=== PATIENT | female | born 1985 | race Caucasian/White ===

== ENCOUNTER 2017-07-14 14:06 | Emergency (ER) | payer MEDICAID ==
[~2017-07-14] VITALS: Ht 167.6 cm; Wt 56.1 kg
[2017-07-14 14:14] VITALS: BP 150/100
[2017-07-14] MEDS ORDERED: IBUPROFEN 200 MG TABLET ONE (14:54)
[2017-07-14] MEDS ORDERED: HYDROcodone/APAP 5/325 TABLET ONE (14:54)
[2017-07-14] MEDS ORDERED: HYDROcodone/APAP 5/325 TABLET PO ONE (15:00)
[2017-07-14] MEDS ORDERED: IBUPROFEN 200 MG TABLET PO ONE (15:00)
== END 2017-07-14 15:18 | disposition home or self-care (01) ==
LOC: ED 15:00
DX: K08.89 Other specified disorders of teeth and supporting structures (principal); R51 Headache; R11.2 Nausea with vomiting, unspecified
CPT/HCPCS: 99283

== ENCOUNTER 2017-08-31 21:12 | Emergency (ER) | payer MEDICAID ==
[~2017-08-31] VITALS: Ht 167.6 cm; Wt 60.0 kg
[2017-08-31 21:14] VITALS: BP 115/79
[2017-08-31] MEDS ORDERED: SODIUM CHLORIDE FLUSH 10ML SYR IVF ONE (22:00)
[2017-08-31 22:01] LABS: BASOPHILS # (AUTO) 0.06 x10^3/uL (0-0.1); BASOPHILS % (AUTO) 1 % (0-1); EOSINOPHILS # (AUTO) 0.14 x10^3/uL (0-0.4); EOSINOPHILS % (AUTO) 2 % (1-7); LYMPHOCYTES # (AUTO) 3.13 x10^3/uL (1-3.4); LYMPHOCYTES % (AUTO) 35 % (22-44); MD NO; MEAN CORPUSCULAR HEMOGLOBIN 30.4 pg (27.0-34.8); MEAN CORPUSCULAR HGB CONC 33.4 g/dL (32.4-35.8); MEAN CORPUSCULAR VOLUME 90.9 fL (80-100); MEAN PLATELET VOLUME 9.6 fL (7.4-10.4); MONOCYTES # (AUTO) 0.83 x10^3/uL (0.2-0.8); MONOCYTES % (AUTO) 9 % (2-9); NEUTROPHILS # (AUTO) 4.84 x10^3/uL (1.8-6.8); NEUTROPHILS % (AUTO) 54 % (42-75); PLATELET COUNT 334 x10^3/uL (130-400); RED BLOOD COUNT 3.87 x10^6/uL (3.82-5.3); RED CELL DISTRIBUTION WIDTH 13.5 % (9.6-15.2)
[2017-08-31 22:09] LABS: ALANINE AMINOTRANSFERASE 16 U/L (12-78); ALBUMIN 3.5 g/dL (3.4-5.0); ANION GAP 7 mmol/L (5-15); CHLORIDE 107 mmol/L (98-107); CREATININE 0.73 mg/dL (0.55-1.02)
[2017-08-31 22:26] LABS: ALKALINE PHOSPHATASE 50 U/L (45-117); BILIRUBIN,TOTAL 0.2 mg/dL (0.2-1.0)
[2017-08-31 22:37] LABS: MICROSCOPIC NOT IND
[2017-08-31 22:41] LABS: CULTURE INDICATED? NO
== END 2017-08-31 23:12 | disposition home or self-care (01) ==
LOC: ED 23:00
DX: O26.891 Other specified pregnancy related conditions, first trimester (principal); R10.31 Right lower quadrant pain; Z3A.01 Less than 8 weeks gestation of pregnancy; Z88.0 Allergy status to penicillin
CPT/HCPCS: 36415; 76801; 80053; 81003; 83690; 84702; 85025; 86901; 99285

== ENCOUNTER 2017-09-15 12:40 | Emergency (ER) | payer MEDICAID ==
[~2017-09-15] VITALS: Ht 167.6 cm; Wt 58.7 kg
[2017-09-15 14:11] LABS: BASOPHILS # (AUTO) 0.05 x10^3/uL (0-0.1); BASOPHILS % (AUTO) 1 % (0-1); EOSINOPHILS # (AUTO) 0.06 x10^3/uL (0-0.4); EOSINOPHILS % (AUTO) 1 % (1-7); LYMPHOCYTES # (AUTO) 1.74 x10^3/uL (1-3.4); LYMPHOCYTES % (AUTO) 17 % (22-44); MD NO; MEAN CORPUSCULAR HGB CONC 33.7 g/dL (32.4-35.8); MEAN CORPUSCULAR VOLUME 92.1 fL (80-100); MEAN PLATELET VOLUME 9.5 fL (7.4-10.4); MONOCYTES % (AUTO) 7 % (2-9); NEUTROPHILS # (AUTO) 7.86 x10^3/uL (1.8-6.8); NEUTROPHILS % (AUTO) 76 % (42-75); PLATELET COUNT 323 x10^3/uL (130-400); RED BLOOD COUNT 4.63 x10^6/uL (3.82-5.3); RED CELL DISTRIBUTION WIDTH 13.1 % (9.6-15.2)
[2017-09-15 14:22] LABS: ANION GAP 8 mmol/L (5-15); CALCIUM 8.7 mg/dL (8.5-10.1); CHLORIDE 106 mmol/L (98-107)
[2017-09-15 14:39] LABS: ALANINE AMINOTRANSFERASE 20 U/L (12-78); ALKALINE PHOSPHATASE 61 U/L (45-117); BILIRUBIN,TOTAL 0.4 mg/dL (0.2-1.0); CREATININE 0.59 mg/dL (0.55-1.02); TOTAL PROTEIN 8.3 g/dL (6.4-8.2)
[2017-09-15 14:48] LABS: MICROSCOPIC NOT IND
[2017-09-15 15:03] LABS: CULTURE INDICATED? NO
[2017-09-15 16:11] VITALS: BP 108/75
== END 2017-09-15 16:59 | disposition home or self-care (01) ==
LOC: ED 16:15
DX: O26.891 Other specified pregnancy related conditions, first trimester (principal); R42 Dizziness and giddiness; Z88.0 Allergy status to penicillin; Z87.891 Personal history of nicotine dependence; Z3A.00 Weeks of gestation of pregnancy not specified
CPT/HCPCS: 36415; 80053; 81003; 82962; 84702; 85025; 93005; 99285

== ENCOUNTER 2017-11-11 13:17 | Emergency (ER) | payer MEDICAID ==
[~2017-11-11] VITALS: Ht 167.6 cm; Wt 58.9 kg
[2017-11-11 13:21] VITALS: BP 101/70
== END 2017-11-11 16:45 | disposition left against medical advice (07) ==
LOC: ED 16:39
DX: R10.30 Lower abdominal pain, unspecified (principal); Z53.21 Procedure and treatment not carried out due to patient leaving prior to being seen by health care provider

== ENCOUNTER 2018-01-04 10:54 | Outpatient (CLI) | payer MEDICAID ==
[~2018-01-04] VITALS: Ht 167.6 cm; Wt 59.1 kg
[2018-01-04 11:30] LABS: MICROSCOPIC NOT IND
[2018-01-04 12:05] LABS: BASOPHILS # (AUTO) 0.03 x10^3/uL (0-0.1); BASOPHILS % (AUTO) 0 % (0-1); EOSINOPHILS # (AUTO) 0.02 x10^3/uL (0-0.4); EOSINOPHILS % (AUTO) 0 % (1-7); LYMPHOCYTES # (AUTO) 1.86 x10^3/uL (1-3.4); LYMPHOCYTES % (AUTO) 19 % (22-44); MD NO; MEAN CORPUSCULAR HEMOGLOBIN 30.7 pg (27.0-34.8); MEAN CORPUSCULAR HGB CONC 33.6 g/dL (32.4-35.8); MEAN CORPUSCULAR VOLUME 91.5 fL (80-100); MEAN PLATELET VOLUME 9.4 fL (7.4-10.4); MONOCYTES # (AUTO) 0.47 x10^3/uL (0.2-0.8); MONOCYTES % (AUTO) 5 % (2-9); NEUTROPHILS # (AUTO) 7.66 x10^3/uL (1.8-6.8); NEUTROPHILS % (AUTO) 76 % (42-75); PLATELET COUNT 257 x10^3/uL (130-400); RED BLOOD COUNT 3.44 x10^6/uL (3.82-5.3); RED CELL DISTRIBUTION WIDTH 12.6 % (9.6-15.2)
[2018-01-04 12:19] LABS: ALANINE AMINOTRANSFERASE 21 U/L (12-78); ALBUMIN 2.8 g/dL (3.4-5.0); ANION GAP 7 mmol/L (5-15); CALCIUM 8.1 mg/dL (8.5-10.1); CHLORIDE 107 mmol/L (98-107); CREATININE 0.45 mg/dL (0.55-1.02)
[2018-01-04 12:21] LABS: ALKALINE PHOSPHATASE 60 U/L (45-117); BILIRUBIN,TOTAL 0.1 mg/dL (0.2-1.0); TOTAL PROTEIN 6.5 g/dL (6.4-8.2)
[2018-01-04 12:46] LABS: CLUE CELLS NONE SEEN (NONE SEEN); WET PREP WBCS NONE SEEN (FEW)
[2018-01-04 12:50] VITALS: BP 99/58
[2018-01-04] MEDS ORDERED: TERBUTALINE 1 MG/ML, 1ML ONE (13:26)
[2018-01-04] MEDS ORDERED: TERBUTALINE 1 MG/ML, 1ML SQ ONE (13:30)
[2018-01-04] MEDS ORDERED: PREN1TAB10 PO (14:37)
== END 2018-01-04 15:31 | disposition home or self-care (01) ==
LOC: LDOP 10:54
PROVIDERS: ATTEND Obstetrics & Gynecology
DX: O26.892 Other specified pregnancy related conditions, second trimester (principal); R10.9 Unspecified abdominal pain; Z3A.23 23 weeks gestation of pregnancy
CPT/HCPCS: 36415; 59025; 76815; 80053; 81003; 84112; 85025; 87086; 87147; 87210; 87491; 87591; 87808; 96372; 99201; J3105; G0463

== ENCOUNTER 2018-01-06 00:59 | Emergency (ER) | payer MEDICAID ==
[~2018-01-06 00:59] MED LIST: PREN1TAB10 PO
[2018-01-06] MEDS ORDERED: Tylenol PM PO (02:35)
[2018-01-06] MEDS ORDERED: RANI150T23 PO (02:35)
== END 2018-01-06 01:15 | disposition left against medical advice (07) ==
LOC: ED 01:09
DX: O26.892 Other specified pregnancy related conditions, second trimester (principal); Z3A.24 24 weeks gestation of pregnancy; Z53.21 Procedure and treatment not carried out due to patient leaving prior to being seen by health care provider

== ENCOUNTER 2018-01-06 01:09 | Outpatient (CLI) | payer MEDICAID ==
[~2018-01-06] VITALS: Ht 167.6 cm; Wt 59.1 kg
[2018-01-06 01:19] VITALS: BP 125/61
[2018-01-06] MEDS ORDERED: TERBUTALINE 1 MG/ML, 1ML ONE (01:44)
[2018-01-06] MEDS: TERBUTALINE 1 MG/ML, 1ML SQ ONE (01:47)
[2018-01-06] MEDS ORDERED: NITROFURANTOIN (MACROBID) 100 MG CAPSULE ONE (01:57)
[2018-01-06] MEDS: NITROFURANTOIN (MACROBID) 100 MG CAPSULE PO ONE (01:58)
[2018-01-06] MEDS ORDERED: RANI150T23 PO (02:35)
[2018-01-06] MEDS ORDERED: Tylenol PM PO (02:35)
== END 2018-01-06 03:38 | disposition home or self-care (01) ==
LOC: LDOP 01:09
PROVIDERS: ATTEND Obstetrics & Gynecology
DX: O26.899 Other specified pregnancy related conditions, unspecified trimester (principal); R10.9 Unspecified abdominal pain; M54.9 Dorsalgia, unspecified; Z3A.00 Weeks of gestation of pregnancy not specified
CPT/HCPCS: 59025; 96372; 99211; J3105; G0463

== ENCOUNTER 2018-01-12 02:18 | Outpatient (CLI) | payer MEDICAID ==
[~2018-01-12 02:18] MED LIST changes: +RANI150T23 PO; +Tylenol PM PO
== END 2018-01-12 03:15 | disposition home or self-care (01) ==
LOC: LDOP 02:18
PROVIDERS: ATTEND Obstetrics & Gynecology
DX: O26.893 Other specified pregnancy related conditions, third trimester (principal); Z3A.36 36 weeks gestation of pregnancy; R10.9 Unspecified abdominal pain
CPT/HCPCS: 59025; 99211; G0463

== ENCOUNTER 2018-02-18 22:51 | Outpatient (CLI) | payer MEDICAID ==
[2018-02-18 22:59] VITALS: BP 119/60
[2018-02-18 23:50] LABS: MICROSCOPIC NOT IND
[2018-02-18 23:51] LABS: FERNING TEST FERNING NOT PRESENT (NEGATIVE)
[2018-02-19] MEDS ORDERED: TERBUTALINE 1 MG/ML, 1ML IV ONE
[2018-02-19] MEDS ORDERED: TERBUTALINE 1 MG/ML, 1ML ONE (00:02)
== END 2018-02-19 01:29 | disposition home or self-care (01) ==
LOC: LDOP 22:51
PROVIDERS: ATTEND Obstetrics & Gynecology
DX: O26.893 Other specified pregnancy related conditions, third trimester (principal); R10.9 Unspecified abdominal pain; Z3A.30 30 weeks gestation of pregnancy
CPT/HCPCS: 59025; 81003; 84112; 87086; 89060; 96372; 99211; J3105; G0463; Q0114

== ENCOUNTER 2018-03-06 21:52 | Observation (INO) | payer MEDICAID ==
[2018-03-06] MEDS ORDERED: TERBUTALINE 1 MG/ML, 1ML ONE (22:16)
[2018-03-06] MEDS ORDERED: TERBUTALINE 1 MG/ML, 1ML SQ ONE (22:30)
[2018-03-06] MEDS ORDERED: LACTATED RINGERS 1,000 ML IV SCH (22:30)
[2018-03-06] MEDS ORDERED: LACTATED RINGERS 1,000 ML IVBOLUS ONE (22:30)
[2018-03-06 23:01] LABS: MICROSCOPIC NOT IND
== END 2018-03-06 23:35 | disposition home or self-care (01) ==
LOC: LDOP 21:52 → LDIP 22:15
PROVIDERS: ADMIT Obstetrics & Gynecology; ATTEND Obstetrics & Gynecology
DX: O62.9 Abnormality of forces of labor, unspecified (principal); Z3A.32 32 weeks gestation of pregnancy; Z88.0 Allergy status to penicillin; Z88.5 Allergy status to narcotic agent
CPT/HCPCS: 59025; 81003; 87086; 96372; G0378; J3105; J7120; 96360

== ENCOUNTER 2018-03-17 14:43 | Outpatient (CLI) | payer MEDICAID ==
[~2018-03-17] VITALS: Ht 167.6 cm; Wt 59.0 kg
[2018-03-17 14:56] VITALS: BP 101/64
[2018-03-17 15:15] LABS: MICROSCOPIC INDICATED
== END 2018-03-17 16:30 | disposition home or self-care (01) ==
LOC: LDOP 14:43
PROVIDERS: ATTEND Obstetrics & Gynecology
DX: O26.893 Other specified pregnancy related conditions, third trimester (principal); R10.9 Unspecified abdominal pain; Z3A.33 33 weeks gestation of pregnancy
CPT/HCPCS: 59025; 81001; 84112; 87086; 99211; G0463

== ENCOUNTER 2018-03-19 06:07 | Outpatient (CLI) | payer MEDICAID ==
[~2018-03-19] VITALS: Ht 167.6 cm; Wt 59.0 kg
[2018-03-19 06:37] VITALS: BP 102/60
[2018-03-19] MEDS ORDERED: ACETAMINOPHEN 325 MG TABLET ONE (06:39)
[2018-03-19 06:46] LABS: MICROSCOPIC NOT IND
[2018-03-19 06:59] LABS: AMPHETAMINE SCREEN, URINE Negative (Negative); BARBITURATE SCREEN, URINE Negative (Negative); BENZODIAZEPINE SCREEN, URINE Negative (Negative); CANNABINOID SCREEN, URINE Negative (Negative); COCAINE SCREEN, URINE Negative (Negative); METHADONE SCREEN, URINE Negative (Negative); OPIATE SCREEN, URINE Negative (Negative)
[2018-03-19] MEDS ORDERED: ACETAMINOPHEN 325 MG TABLET PO ONE (07:00)
== END 2018-03-19 07:00 | disposition home or self-care (01) ==
LOC: LDOP 06:07
PROVIDERS: ATTEND Obstetrics & Gynecology
DX: O26.893 Other specified pregnancy related conditions, third trimester (principal); O62.9 Abnormality of forces of labor, unspecified; R10.9 Unspecified abdominal pain; M54.9 Dorsalgia, unspecified; Z3A.34 34 weeks gestation of pregnancy
CPT/HCPCS: 59025; 80307; 81003; 87086; 99211; G0463

== ENCOUNTER 2018-03-30 16:26 | Outpatient (CLI) | payer MEDICAID ==
[~2018-03-30] VITALS: Ht 167.6 cm; Wt 60.9 kg
[2018-03-30 17:26] VITALS: BP 96/61
[2018-03-30 17:41] LABS: MICROSCOPIC NOT IND
== END 2018-03-30 18:44 | disposition home or self-care (01) ==
LOC: LDOP 16:26
PROVIDERS: ATTEND Obstetrics & Gynecology
DX: O26.893 Other specified pregnancy related conditions, third trimester (principal); Z3A.35 35 weeks gestation of pregnancy; M54.9 Dorsalgia, unspecified
CPT/HCPCS: 59025; 81003; 87086; 89060; 99211; G0463; Q0114

== ENCOUNTER 2018-04-05 21:08 | Outpatient (CLI) | payer MEDICAID ==
[~2018-04-05] VITALS: Ht 167.6 cm; Wt 65.0 kg
[2018-04-05 21:59] LABS: MICROSCOPIC NOT IND
== END 2018-04-05 22:25 | disposition home or self-care (01) ==
LOC: LDOP 21:08
PROVIDERS: ATTEND Obstetrics & Gynecology
DX: O26.893 Other specified pregnancy related conditions, third trimester (principal); R10.9 Unspecified abdominal pain; G25.81 Restless legs syndrome; Z3A.36 36 weeks gestation of pregnancy; Z88.0 Allergy status to penicillin; Z88.8 Allergy status to other drugs, medicaments and biological substances
CPT/HCPCS: 59025; 81003; 87086; 99211; G0463

== ENCOUNTER 2018-04-07 22:17 | Outpatient (CLI) | payer MEDICAID ==
[~2018-04-07] VITALS: Ht 167.6 cm; Wt 63.6 kg
== END 2018-04-07 23:56 | disposition home or self-care (01) ==
LOC: LDOP 22:17
PROVIDERS: ATTEND Obstetrics & Gynecology
DX: O42.92 Full-term premature rupture of membranes, unspecified as to length of time between rupture and onset of labor (principal); Z3A.37 37 weeks gestation of pregnancy
CPT/HCPCS: 59025; 76815; 89060; 99211; G0463; Q0114

== ENCOUNTER 2018-04-11 01:31 | Outpatient (CLI) | payer MEDICAID ==
[~2018-04-11] VITALS: Ht 167.6 cm; Wt 63.6 kg
[2018-04-11 01:55] VITALS: BP 105/65
[2018-04-11 03:52] LABS: MICROSCOPIC NOT IND
== END 2018-04-11 03:20 | disposition home or self-care (01) ==
LOC: LDOP 01:31
PROVIDERS: ATTEND Obstetrics & Gynecology
DX: O42.92 Full-term premature rupture of membranes, unspecified as to length of time between rupture and onset of labor (principal); O62.9 Abnormality of forces of labor, unspecified; Z3A.37 37 weeks gestation of pregnancy
CPT/HCPCS: 59025; 81003; 89060; 99211; G0463; Q0114

== ENCOUNTER 2018-04-11 04:34 | Inpatient (IN) | payer MEDICAID ==
[~2018-04-11] VITALS: Ht 167.6 cm; Wt 63.6 kg
[2018-04-11] MEDS ORDERED: D5%-LACTATED RINGERS 1,000 ML IV SCH (05:07)
[2018-04-11] MEDS ORDERED: OXYTOCIN 30U/ 0.9% NaCL 500ML 500 ML IV ONE (05:07)
[2018-04-11] MEDS ORDERED: FENTANYL/BUPIV./NS/PF 250 ML EPIDCONT SCH ×2 (05:12→14:16)
[2018-04-11] MEDS: LACTATED RINGERS 1,000 ML IV SCH ×4 (05:20→22:16)
[2018-04-11] MEDS ORDERED: FENTANYL PF 100 MCG/2ML IV PRN (05:30)
[2018-04-11] MEDS ORDERED: CALCIUM CARBONATE 500 MG TAB.CHEW PO PRN (05:30)
[2018-04-11] MEDS ORDERED: ONDANSETRON 2MG/ML, 2ML IVPush PRN (05:30)
[2018-04-11] MEDS: VANCOMYCIN PMX 1GM/200ML 200 ML IVPB SCH ×2 (05:39→17:36)
[2018-04-11 05:45] VITALS: BP 122/71
[2018-04-11] MEDS ORDERED: LIDOCAINE/PF 1%, 30ML ONE (05:45)
[2018-04-11] MEDS ORDERED: NEWBORN KIT ONE (05:45)
[2018-04-11] MEDS ORDERED: MISOPROSTOL 200 MCG TABLET ONE (05:46)
[2018-04-11] MEDS ORDERED: FENTANYL PF 100 MCG/2ML ONE ×3 (05:46→14:15)
[2018-04-11] MEDS: FENTANYL PF 100 MCG/2ML IVPush PRN ×3 (05:51→14:17)
[2018-04-11 05:54] LABS: BASOPHILS # (AUTO) 0.04 x10^3/uL (0-0.1); BASOPHILS % (AUTO) 1 % (0-1); EOSINOPHILS # (AUTO) 0.05 x10^3/uL (0-0.4); EOSINOPHILS % (AUTO) 1 % (1-7); LYMPHOCYTES # (AUTO) 2.32 x10^3/uL (1-3.4); LYMPHOCYTES % (AUTO) 32 % (22-44); MD NO; MEAN CORPUSCULAR HEMOGLOBIN 32.7 pg (27.0-34.8); MEAN CORPUSCULAR HGB CONC 35.1 g/dL (32.4-35.8); MEAN CORPUSCULAR VOLUME 93.2 fL (80-100); MEAN PLATELET VOLUME 10.3 fL (7.4-10.4); MONOCYTES # (AUTO) 0.54 x10^3/uL (0.2-0.8); MONOCYTES % (AUTO) 7 % (2-9); NEUTROPHILS # (AUTO) 4.42 x10^3/uL (1.8-6.8); NEUTROPHILS % (AUTO) 60 % (42-75); PLATELET COUNT 213 x10^3/uL (130-400); RED BLOOD COUNT 3.38 x10^6/uL (3.82-5.3); RED CELL DISTRIBUTION WIDTH 13.4 % (9.6-15.2)
[2018-04-11] MEDS ORDERED: OXYTOCIN 30U/ 0.9% NaCL 500ML 500 ML ONE (06:52)
[2018-04-11 07:20] VITALS: BP 115/69
[2018-04-11] MEDS: LACTATED RINGERS 1,000 ML IVBOLUS PRN ×2 (13:25→14:24)
[2018-04-11] MEDS ORDERED: FENTANYL/BUPIV./NS/PF 250 ML EPIDCONT ONE ×2 (14:15→14:22)
[2018-04-11] MEDS ORDERED: BUPIVACAINE 0.25% ONE (14:22)
[2018-04-11] MEDS ORDERED: LIDOCAINE/PF 1.5%-EPI 1:200K, 30ML ONE (14:22)
[2018-04-11] MEDS ORDERED: EPHEDRINE 50 MG/ML, 1ML IVPush PRN (14:30)
[2018-04-11] MEDS ORDERED: NALOXONE 0.4 MG/ML, 1ML IVPush PRN (14:30)
[2018-04-11] MEDS ORDERED: LACTATED RINGERS 1,000 ML IVBOLUS PRN (14:30)
[2018-04-11] MEDS ORDERED: LACTATED RINGERS 1,000 ML INTUTE SCH (23:30)
[2018-04-11] MEDS ORDERED: LACTATED RINGERS 1,000 ML INTUTE PRN (23:30)
[2018-04-11] MEDS ORDERED: OXYTOCIN 30U/ 0.9% NaCL 500ML 500 ML IV SCH (23:48)
[2018-04-12] MEDS ORDERED: MISOPROSTOL 200 MCG TABLET PR PRN
[2018-04-12] MEDS ORDERED: ONDANSETRON 2MG/ML, 2ML IV PRN
[2018-04-12] MEDS ORDERED: DIPH,PERTUSS(ACELL),TET VAC/PF NC IM-VACC PRN
[2018-04-12] MEDS ORDERED: RHOGAM FROM BLOOD BANK 1 NOTE EA IM/IV ONE
[2018-04-12] MEDS ORDERED: CALCIUM CARBONATE 500 MG TAB.CHEW PO PRN
[2018-04-12] MEDS ORDERED: MEASLES,MUMPS&RUBELLA VACC/PF 0.5 ML SQ PRN
[2018-04-12] MEDS ORDERED: MAGNESIUM HYDROXIDE 8%, 30ML UDC PO PRN
[2018-04-12] MEDS ORDERED: OXYTOCIN 30U/ 0.9% NaCL 500ML 500 ML ONE (01:00)
[2018-04-12 01:45] VITALS: BP 108/66
[2018-04-12] MEDS: OXYcodone/APAP 5/325MG TABLET PO PRN ×2 (01:52→21:59)
[2018-04-12] MEDS: IBUPROFEN 600 MG TABLET PO PRN ×4 (01:52→18:03)
[2018-04-12 05:07] VITALS: BP 106/68
[2018-04-12] MEDS: OXYcodone IR 5MG TABLET PO PRN ×4 (05:18→18:03)
[2018-04-12] MEDS: LACTATED RINGERS 1,000 ML IV SCH (06:16)
[2018-04-12 08:00] VITALS: BP 119/75
[2018-04-12] MEDS: DOCUSATE 100 MG CAPSULE PO PRN (08:37)
[2018-04-12] MEDS: PRENATAL VIT/IRON/FA 1 EACH TABLET PO SCH (08:40)
[2018-04-12 12:53] VITALS: BP 109/71
[2018-04-12 13:14] LABS: BASOPHILS # (AUTO) 0.01 x10^3/uL (0-0.1); BASOPHILS % (AUTO) 0 % (0-1); EOSINOPHILS % (AUTO) 1 % (1-7); LYMPHOCYTES # (AUTO) 2.13 x10^3/uL (1-3.4); LYMPHOCYTES % (AUTO) 22 % (22-44); MD NO; MEAN CORPUSCULAR HEMOGLOBIN 31.8 pg (27.0-34.8); MEAN CORPUSCULAR HGB CONC 33.9 g/dL (32.4-35.8); MEAN CORPUSCULAR VOLUME 93.8 fL (80-100); MONOCYTES # (AUTO) 0.53 x10^3/uL (0.2-0.8); MONOCYTES % (AUTO) 5 % (2-9); NEUTROPHILS # (AUTO) 7.04 x10^3/uL (1.8-6.8); NEUTROPHILS % (AUTO) 72 % (42-75); PLATELET COUNT 187 x10^3/uL (130-400); RED BLOOD COUNT 3.34 x10^6/uL (3.82-5.3); RED CELL DISTRIBUTION WIDTH 13.1 % (9.6-15.2)
[2018-04-12 16:50] VITALS: BP 119/75
[2018-04-12 19:20] VITALS: BP 120/68
[2018-04-13] MEDS: IBUPROFEN 600 MG TABLET PO PRN ×3 (01:58→15:22)
[2018-04-13] MEDS: OXYcodone/APAP 5/325MG TABLET PO PRN ×4 (01:58→14:25)
[2018-04-13 07:25] VITALS: BP 114/71
[2018-04-13] MEDS: PRENATAL VIT/IRON/FA 1 EACH TABLET PO SCH (09:00)
[2018-04-13] MEDS: DOCUSATE 100 MG CAPSULE PO PRN (09:28)
[2018-04-13] MEDS ORDERED: IBUP-1222 PO (11:09)
== END 2018-04-13 17:05 | disposition home or self-care (01) | DRG 807 ==
LOC: LDOP 04:34 → LDIP 05:00 → 2NW 04-12 01:40
PROVIDERS: ADMIT Obstetrics & Gynecology; ATTEND Obstetrics & Gynecology
PROC: 10E0XZZ Delivery of Products of Conception, External Approach (ICD-10-PCS; principal; 2018-04-11)
PROC: 10H07YZ Insertion of Other Device into Products of Conception, Via Natural or Artificial Opening (ICD-10-PCS; 2018-04-11)
PROC: 3E0R3BZ Introduction of Anesthetic Agent into Spinal Canal, Percutaneous Approach (ICD-10-PCS; 2018-04-11)
PROC: 00HU33Z Insertion of Infusion Device into Spinal Canal, Percutaneous Approach (ICD-10-PCS; 2018-04-11)
DX: O99.824 Streptococcus B carrier state complicating childbirth (principal); Z37.0 Single live birth; O99.344 Other mental disorders complicating childbirth; O99.334 Smoking (tobacco) complicating childbirth; O34.211 Maternal care for low transverse scar from previous cesarean delivery; F32.9 Major depressive disorder, single episode, unspecified; F17.210 Nicotine dependence, cigarettes, uncomplicated; Z3A.37 37 weeks gestation of pregnancy
CPT/HCPCS: 36415; 82803; 85025; 86850; 86900; 99285; G0378; J3010; J3370; J3490; J7120

== ENCOUNTER 2018-04-14 18:32 | Emergency (ER) | payer MEDICAID ==
[~2018-04-14] VITALS: Ht 167.6 cm; Wt 58.5 kg
[~2018-04-14 18:32] MED LIST changes: +IBUP-1222 PO
[2018-04-14 19:48] LABS: BASOPHILS # (AUTO) 0.04 x10^3/uL (0-0.1); BASOPHILS % (AUTO) 0 % (0-1); EOSINOPHILS # (AUTO) 0.23 x10^3/uL (0-0.4); EOSINOPHILS % (AUTO) 3 % (1-7); LYMPHOCYTES # (AUTO) 2.56 x10^3/uL (1-3.4); LYMPHOCYTES % (AUTO) 27 % (22-44); MD NO; MEAN CORPUSCULAR HEMOGLOBIN 32.1 pg (27.0-34.8); MEAN CORPUSCULAR HGB CONC 34.1 g/dL (32.4-35.8); MEAN CORPUSCULAR VOLUME 94.2 fL (80-100); MEAN PLATELET VOLUME 10.8 fL (7.4-10.4); MONOCYTES # (AUTO) 0.53 x10^3/uL (0.2-0.8); MONOCYTES % (AUTO) 6 % (2-9); NEUTROPHILS # (AUTO) 6.02 x10^3/uL (1.8-6.8); NEUTROPHILS % (AUTO) 64 % (42-75); PLATELET COUNT 249 x10^3/uL (130-400); RED BLOOD COUNT 3.94 x10^6/uL (3.82-5.3); RED CELL DISTRIBUTION WIDTH 12.9 % (9.6-15.2)
[2018-04-14 19:54] LABS: ALANINE AMINOTRANSFERASE 18 U/L (12-78); ALBUMIN 2.9 g/dL (3.4-5.0); ANION GAP 10 mmol/L (5-15); CALCIUM 8.6 mg/dL (8.5-10.1); CHLORIDE 110 mmol/L (98-107)
[2018-04-14 19:56] LABS: ALKALINE PHOSPHATASE 115 U/L (45-117); BILIRUBIN,TOTAL 0.3 mg/dL (0.2-1.0); TOTAL PROTEIN 7.4 g/dL (6.4-8.2)
[2018-04-14 19:58] LABS: MICROSCOPIC NOT IND
[2018-04-14 20:04] LABS: CULTURE INDICATED? NO
[2018-04-14 20:13] VITALS: BP 118/78
[2018-04-14] MEDS ORDERED: HYDROcodone/APAP 5/325 TABLET ONE (20:15)
[2018-04-14] MEDS ORDERED: HYDROcodone/APAP 5/325 TABLET PO ONE (20:30)
== END 2018-04-14 20:44 | disposition home or self-care (01) ==
LOC: ED 20:00
DX: R10.32 Left lower quadrant pain (principal); M54.5 Low back pain; F32.9 Major depressive disorder, single episode, unspecified; Z98.890 Other specified postprocedural states
CPT/HCPCS: 36415; 80053; 81003; 85025; 99284

== ENCOUNTER 2018-04-16 00:32 | Emergency (ER) | payer MEDICAID ==
[~2018-04-16] VITALS: Ht 167.6 cm; Wt 59.8 kg
[2018-04-16] MEDS ORDERED: ONDANSETRON ODT 4 MG PO ONE (01:00)
[2018-04-16] MEDS ORDERED: HYDR-3240 PO (01:05)
[2018-04-16] MEDS ORDERED: ONDANSETRON ODT 4 MG ONE (01:11)
[2018-04-16] MEDS ORDERED: HYDROmorphone 2 MG/ML, 1ML ONE ×2 (01:11→03:40)
[2018-04-16] MEDS: HYDROmorphone 2 MG/ML, 1ML IVPush PRN ×2 (01:13→03:43)
[2018-04-16 01:21] LABS: INTERNATIONAL NORMALIZED RATIO 0.91 (0.93-1.1); PROTHROMBIN TIME 9.5 Seconds (9.6-11.5)
[2018-04-16 01:23] LABS: BASOPHILS # (AUTO) 0.06 x10^3/uL (0-0.1); BASOPHILS % (AUTO) 1 % (0-1); EOSINOPHILS # (AUTO) 0.28 x10^3/uL (0-0.4); EOSINOPHILS % (AUTO) 4 % (1-7); LYMPHOCYTES # (AUTO) 2.61 x10^3/uL (1-3.4); LYMPHOCYTES % (AUTO) 37 % (22-44); MD NO; MEAN CORPUSCULAR HEMOGLOBIN 32.1 pg (27.0-34.8); MEAN CORPUSCULAR HGB CONC 34.1 g/dL (32.4-35.8); MEAN PLATELET VOLUME 10.2 fL (7.4-10.4); MONOCYTES # (AUTO) 0.44 x10^3/uL (0.2-0.8); MONOCYTES % (AUTO) 6 % (2-9); NEUTROPHILS # (AUTO) 3.75 x10^3/uL (1.8-6.8); NEUTROPHILS % (AUTO) 53 % (42-75); PLATELET COUNT 220 x10^3/uL (130-400); RED BLOOD COUNT 3.34 x10^6/uL (3.82-5.3); RED CELL DISTRIBUTION WIDTH 12.8 % (9.6-15.2)
[2018-04-16 01:24] LABS: ALANINE AMINOTRANSFERASE 20 U/L (12-78); ALBUMIN 2.6 g/dL (3.4-5.0); ANION GAP 12 mmol/L (5-15); CALCIUM 8.1 mg/dL (8.5-10.1); CHLORIDE 109 mmol/L (98-107); CREATININE 0.55 mg/dL (0.55-1.02)
[2018-04-16 01:26] LABS: ALKALINE PHOSPHATASE 102 U/L (45-117); BILIRUBIN,TOTAL 0.2 mg/dL (0.2-1.0); TOTAL PROTEIN 6.6 g/dL (6.4-8.2)
[2018-04-16 03:42] VITALS: BP 130/69
== END 2018-04-16 04:49 | disposition home or self-care (01) ==
LOC: ED 00:54
DX: N93.9 Abnormal uterine and vaginal bleeding, unspecified (principal); R10.2 Pelvic and perineal pain; Z87.891 Personal history of nicotine dependence
CPT/HCPCS: 36415; 76856; 80053; 85025; 85610; 86850; 86900; 93005; 96374; 96376; 99285; J1170; Q0162